=== PATIENT | male | born 1995 | race Caucasian/White ===

== ENCOUNTER 2019-01-04 02:11 | Emergency (ER) | payer BC, MEDICAID ==
[~2019-01-04] VITALS: Ht 170.2 cm; Wt 84.0 kg
[2019-01-04 07:07] LABS: *AMPHETAMINES SCREEN URINE NEGATIVE (NEGATIVE); *BARBITURATES SCREEN URINE NEGATIVE (NEGATIVE); *BENZODIAZEPINES SCREEN URINE NEGATIVE (NEGATIVE); *COCAINE SCREEN URINE PRESUMTIVE POSITIVE (NEGATIVE)
[2019-01-04 07:08] LABS: CANNABINOID URINE SCREEN PRESUMTIVE POSITIVE (NEGATIVE); METHADONE URINE SCREEN NEGATIVE (NEGATIVE); OPIATES URINE SCREEN NEGATIVE (NEGATIVE); PHENCYCLIDINE URINE SCREEN NEGATIVE (NEGATIVE)
[2019-01-04 08:00] VITALS: BP 108/62
== END 2019-01-04 08:11 | disposition home or self-care (01) ==
LOC: ER 02:11
DX: F12.10 Cannabis abuse, uncomplicated (principal); F14.90 Cocaine use, unspecified, uncomplicated; R07.9 Chest pain, unspecified; R06.02 Shortness of breath
CPT/HCPCS: 71045; 80305; 93005; 99284